=== PATIENT | male | born 1990 | race Caucasian/White ===

== ENCOUNTER 2017-02-15 09:44 | Day surgery (SDC) | payer BC ==
--- NOTE | 2017-02-15 08:34 | HP ---
DATE OF SURGERY: 02/15/2017 HISTORY OF PRESENT ILLNESS: The patient is a 26 year-old bloating a lot, heartburn, some right upper quadrant epigastric pain worse with spicy foods and nausea at times. Ultrasound negative. HIDA scan 17% ejection fraction. PAST MEDICAL HISTORY: No chronic illnesses. PAST SURGICAL HISTORY: None. MEDICATIONS: Prilosec, ranitidine. ALLERGIES: NKDA. FAMILY HISTORY: Diabetes. History of anemia. SOCIAL HISTORY: Chews tobacco, denies smoking. No alcohol abuse. REVIEW OF SYSTEMS: Ten systems reviewed per admission assessment. No chest pain or palpitations other systems negative or noncontributory per preadmission questionnaire. PHYSICAL EXAMINATION: GENERAL: No acute distress. HEENT: Sclerae nonicteric. NECK: No JVD. CHEST: Equal excursion, nonlabored breathing. CVS: Regular rate and rhythm. ABDOMEN: Soft, mild tenderness epigastrium and right upper quadrant. No peritoneal signs. EXTREMITIES: No edema. NEURO: Alert, moving extremities grossly symmetrically. IMPRESSION: Symptomatic biliary dyskinesia. HIDA ejection fraction 17%, probable chronic cholecystitis. I feel the patient will benefit from cholecystectomy. I explained laparoscopic cholecystectomy possible open, shown the gallbladder pamphlet and risk sheet, explained the procedure in detail but not limited to bleeding or infection, small risk of bowel injury or perforation possibly requiring open procedure, small risk of bleeding or infection, small risk of trocar injury or hernia, small risk of bile leak, bile duct injury, retained stone or sludge possibly requiring further procedure either open or ERCP, general risk of anesthesia, deep venous thrombosis, pulmonary embolism, pneumonia, perioperative risk of aches, pains, bloating, constipation and/or loose stools possibly chronic in nature, possibility that this procedure may not improve his symptoms. He may need further work up and/or testing, may need endoscopy or other studies or procedures or referral. He understands and agrees to the planned procedure as well as possible need to convert to open procedure as well as general risk of deep venous thrombosis, pulmonary embolism, pneumonia but not limited to anesthesia, will proceed with laparoscopic cholecystectomy possible open as an outpatient.
[~2017-02-15 09:44] MED LIST: BRIDION 200MG/2ML IV ONE; DIPRIVAN 200 MG/20 ML IV ONE; Decadron 4 MG INJ IV ONE; Lactated Ringers 1,000 ML IV ONE; Lactated Ringers 1,000 ML IV SCH; MEFOXIN 2 GM PREMIX** 50 ML IV ONE; Pepcid 20 MG VIAL IV ONE; Quelicin Fliptop 200 MG/10 ML IV ONE; SUBLIMAZE 100 MCG/2 ML IV ONE; Sensorcaine 0.25% 10 ML ONE; TORAdol 30 mg Injection IV ONE; Zemuron 100 MG/10 ML IV ONE; Zofran 4 MG/2 ML VIAL IV ONE
[2017-02-15] MEDS ORDERED: Phenergan 25 MG INJ ONE (11:42)
[2017-02-15] MEDS ORDERED: SUBLIMAZE 100 MCG/2 ML ONE (11:45)
[2017-02-15 13:20] VITALS: BP 105/55; PULSE 91; O2SAT 95
--- NOTE | 2017-02-16 08:49 | OP ---
SURGERY DATE/TIME: 02/15/2017 1050 PREOPERATIVE DIAGNOSIS: Symptomatic biliary dyskinesia, chronic cholecystitis. POSTOPERATIVE DIAGNOSIS: Symptomatic biliary dyskinesia, chronic cholecystitis. PROCEDURE: Laparoscopic cholecystectomy. SURGEON: Dr. Gonzalez Correa. ANESTHESIA: General. ESTIMATED BLOOD LOSS: Minimal. INDICATIONS: As noted above. Risks and benefits explained in detail but not limited to and consent obtained. DESCRIPTION OF PROCEDURE AND FINDINGS: The patient was taken to the OR. General anesthesia was induced. Abdomen prepped and draped in the usual sterile fashion. After official time out and no disagreement with planned procedure, a transverse incision made supraumbilical area. Fascia grasped and pulled upward. Veress needle inserted and tested with saline. Pneumoperitoneum accomplished insufflating opening pressure of 0-15. A right upper quadrant 5 mm bladeless port and camera were inserted without difficulty. There was no evidence of any intra-abdominal injury secondary to trocar insertion. The 10/11 port is placed in the supraumbilical area followed by 5 mm additional right upper quadrant port and 5 mm epigastric port. The gallbladder was grasped and retracted over the edge of the liver. Dissection of fibrofatty adhesion dissected posterior lateral to anterior fashion. Main cystic artery clipped directly on the gallbladder wall x3 and divided in usual fashion and this opened up the angle. The cystic duct and infundibular junction slowly and carefully well skeletonized until a critical view was obtained both anteriorly and posteriorly. Once this was accomplished the gallbladder slowly and carefully dissected free from the liver bed and its dense attachments clipping addition oozing side branch off the cystic artery as necessary directly on the gallbladder wall. Just prior to releasing from final attachments to the anterior edge of the liver the liver bed re-inspected. Clips noted to be in place in cystic duct and cystic artery stumps. There were no signs of any active bleeding or bile leakage. At this point Pleatman sac was placed through the 10/11 umbilical port. Gallbladder in it however when I removed it the sac pulled apart. There was no evidence of any other visible pieces in the abdomen. The sac that had remained in the abdomen was pulled free and passed off. The part in the abdomen intact. There was no evidence of any other visible pieces at this point. A new Pleatman sac was obtained and passed down. The gallbladder was placed in this Pleatman sac. This Pleatman sac functioned properly. The gallbladder easily pulled through the 10/11 port site at the supraumbilical area this was followed by port replaced. Copious amount of irrigation accomplished lateral to the liver and subhepatic space irrigating until clear. The liver bed re-inspected. Clips noted to be in place in cystic duct and cystic artery stumps. There were no signs of any active bleeding or bile leakage. It was felt that there was no benefit from drain placement at this point. Fascial defects supraumbilical area was closed with puncture closure device with #1 Vicryl. Pneumoperitoneum decompressed. The wound was irrigated out. Skin incision closed with 4-0 Vicryl. Steri-Strips and sterile dressing applied. The patient tolerated the procedure well. There were no immediate complications. Findings discussed with the family out in the waiting area.
== END 2017-02-15 13:35 | disposition home or self-care (01) ==
LOC: SDC 09:44
PROVIDERS: ATTEND Surgery
PROC: 0FT44ZZ Resection of Gallbladder, Percutaneous Endoscopic Approach (ICD-10-PCS; principal; 2017-02-15)
DX: K81.1 Chronic cholecystitis (principal)
CPT/HCPCS: 00790; 36415; 88304; J0330; J0694; J1100; J1885; J2405; J2550; J2704; J3010